=== PATIENT | female | born 1975 | race Asian ===

== ENCOUNTER 2019-01-24 15:47 | Outpatient (CLI) | payer OTHER ==
[2019-01-24 16:46] LABS: BASOPHILS % (AUTO) 0.3 % (0.0-2.0); EOSINOPHILS # (AUTO) 0.3 K/uL (0-0.4); EOSINOPHILS % (AUTO) 3.7 % (0.0-4.0); HEMATOCRIT 44.4 % (36-48); HEMOGLOBIN 14.5 g/dL (12.0-16.0); LYMPHOCYTES # (AUTO) 1.6 K/uL (2.5-16.5); LYMPHOCYTES % (AUTO) 17.3 % (20.5-51.1); MEAN CORPUSCULAR HEMOGLOBIN 29 pg (27-31); MEAN CORPUSCULAR HGB CONC 33 g/dL (33-37); MEAN CORPUSCULAR VOLUME 89.7 fL (80-94); MONOCYTES # (AUTO) 0.5 K/uL (0.8-1.0); MONOCYTES % (AUTO) 5.5 % (1.7-9.3); NEUTROPHILS # (AUTO) 6.6 K/uL (1.8-7.7); NEUTROPHILS % (AUTO) 73.2 % (42.2-75.2); PLATELET COUNT (AUTO) 255 K/uL (140-450); RED BLOOD CELL COUNT(AUTO) 4.95 MIL/uL (4.20-5.40); RED CELL DISTRIBUTION WIDTH 13.3 % (11.6-13.7)
[2019-01-24 17:09] LABS: ALBUMIN 4.1 g/dL (3.4-5.0); ANION GAP 13.7 (8-16); CARBON DIOXIDE 28.7 mmol/L (21-32); CREATININE 0.7 mg/dL (0.6-1.3); MAGNESIUM 2.1 mg/dL (1.8-2.4); POTASSIUM 3.4 mmol/L (3.5-5.1); TOTAL BILIRUBIN 0.4 mg/dL (0.0-1.0)
[2019-01-24 17:26] LABS: URIC ACID 4.3 mg/dL (2.6-7.2)
== END 2019-01-24 21:36 | disposition home or self-care (01) ==
LOC: MLB 15:47
DX: M17.0 Bilateral primary osteoarthritis of knee (principal); M25.512 Pain in left shoulder
CPT/HCPCS: 36415; 73030; 73562; 80053; 82607; 83520; 83735; 84443; 84550; 85025; 85613; 85651; 86140; 86430

== ENCOUNTER 2019-11-11 08:34 | Outpatient (CLI) | payer OTHER ==
[2019-11-11 09:59] LABS: BASOPHILS # (AUTO) 0.1 K/uL (0.00-0.22); BASOPHILS % (AUTO) 1.2 % (0.0-2.0); EOSINOPHILS # (AUTO) 0.3 K/uL (0-0.4); EOSINOPHILS % (AUTO) 4.1 % (0.0-4.0); HEMATOCRIT 43.8 % (36-48); HEMOGLOBIN 14.6 g/dL (12.0-16.0); LYMPHOCYTES # (AUTO) 1.8 K/uL (2.5-16.5); LYMPHOCYTES % (AUTO) 28.4 % (20.5-51.1); MEAN CORPUSCULAR HEMOGLOBIN 30 pg (27-31); MEAN CORPUSCULAR HGB CONC 33 g/dL (33-37); MEAN CORPUSCULAR VOLUME 90.4 fL (80-94); MONOCYTES # (AUTO) 0.3 K/uL (0.8-1.0); NEUTROPHILS # (AUTO) 3.9 K/uL (1.8-7.7); NEUTROPHILS % (AUTO) 61.3 % (42.2-75.2); PLATELET COUNT (AUTO) 282 K/uL (140-450); RED BLOOD CELL COUNT(AUTO) 4.84 MIL/uL (4.20-5.40); RED CELL DISTRIBUTION WIDTH 13.2 % (11.6-13.7); WHITE BLOOD COUNT (AUTO) 6.4 K/uL (4.8-10.8)
[2019-11-11 11:20] LABS: ALBUMIN 4.1 g/dL (3.4-5.0); ANION GAP 11.4 (8-16); CARBON DIOXIDE 29.5 mmol/L (21-32); CHOL/HDL RATIO 3.6 (1-4.5); CREATININE 0.6 mg/dL (0.6-1.3); MAGNESIUM 2.1 mg/dL (1.8-2.4); POTASSIUM 3.9 mmol/L (3.5-5.1); THYROID STIMULATING HORMONE 1.02 uIU/mL (0.34-3.74); TOTAL BILIRUBIN 0.4 mg/dL (0.0-1.0)
[2019-11-11 11:29] LABS: URIC ACID 3.4 mg/dL (2.6-7.2)
[2019-11-12 15:06] LABS: ANTI-NUCLEAR ANTIBODY,DIRECT Negative (Negative)
== END 2019-11-11 19:29 | disposition home or self-care (01) ==
LOC: MLB 08:34
DX: Z00.01 Encounter for general adult medical examination with abnormal findings (principal); M25.561 Pain in right knee; M25.562 Pain in left knee
CPT/HCPCS: 36415; 80053; 82306; 82607; 82746; 83036; 83735; 84443; 84550; 85025; 85651; 86038; 86140; 86430

== ENCOUNTER 2023-04-13 12:55 | Emergency (ER) | payer OTHER ==
[~2023-04-13] VITALS: Ht 160 cm; Wt 61.7 kg
[2023-04-13 13:02] VITALS: BP 120/85; PULSE 99; RESP 20; TEMP 97.7; O2SAT 100
[2023-04-13] MEDS ORDERED: methylPREDNISolone SS 125 MG/2 ML VIAL IM ONE (13:10)
[2023-04-13] MEDS ORDERED: ALBUTEROL SULFATE/IPRATROPIU 3 ML SOL IH ONE (13:10)
[2023-04-13 13:12] VITALS: PULSE 99; RESP 20; O2SAT 100
[2023-04-13] MEDS ORDERED: BENZ200C4 PO (14:41)
[2023-04-13] MEDS ORDERED: ALBU0.0912 INH (14:41)
[2023-04-13] MEDS ORDERED: PRED20TA5 PO (14:41)
[2023-04-13 14:52] VITALS: BP 120/77; PULSE 77; RESP 20; TEMP 97.7; O2SAT 100
[2023-04-13 15:34] LABS: FLU A ANTIGEN negative (NEGATIVE); FLU B ANTIGEN NEGATIVE (NEGATIVE)
== END 2023-04-13 14:52 | disposition home or self-care (01) ==
LOC: MED 12:55
DX: J45.901 Unspecified asthma with (acute) exacerbation (principal); Z20.822 Contact with and (suspected) exposure to COVID-19; J06.9 Acute upper respiratory infection, unspecified; Z79.899 Other long term (current) drug therapy
CPT/HCPCS: 71045; 87426; 87804; 94640; 96372; 99284; J2930